=== PATIENT | female | born 1970 | race Two or more races ===

== ENCOUNTER 2024-10-13 09:44 | Outpatient (CLI) | payer OTHER | END 2024-10-13 09:45 | disposition home or self-care (01) | LOC: NUCLEAR 09:44 | PROVIDERS: ATTEND Internal Medicine Geriatric Medicine | DX: I11.9 Hypertensive heart disease without heart failure (principal) ==

== ENCOUNTER 2024-10-13 14:29 | Outpatient (CLI) | payer OTHER | END 2024-10-13 14:31 | disposition home or self-care (01) | LOC: SONOGRAMA 14:29 | PROVIDERS: ATTEND Pathology Anatomic Pathology & Clinical Pathology | DX: D44.0 Neoplasm of uncertain behavior of thyroid gland (principal); E04.1 Nontoxic single thyroid nodule ==